=== PATIENT | female | born 1965 | race Caucasian/White ===

== ENCOUNTER 2018-04-03 13:36 | Outpatient (CLI) | payer BC ==
--- NOTE | 2018-04-07 13:29 | MMO ---
BILATERAL SCREENING MAMMOGRAM: Date: 04/03/18 COMPARISON: 03/06/17 and 11/21/15. HISTORY: Screening mammography. FINDINGS: This patient's mammogram was interpreted with the assistance of computer-aided detection. Scattered fibroglandular densities are present. Benign calcification noted on the right. No dominant mass or architectural distortion. No concerning microcalcification. IMPRESSION: BIRADS 2: Benign Finding(s) Annual screening mammography recommended. POS: [facility]
== END 2018-04-03 13:37 | disposition home or self-care (01) ==
LOC: SCSMAMMO 13:36
PROVIDERS: ATTEND Obstetrics & Gynecology
DX: Z12.31 Encounter for screening mammogram for malignant neoplasm of breast (principal)
CPT/HCPCS: 77067

== ENCOUNTER 2019-01-05 12:44 | Outpatient (CLI) | payer BC, OTHER ==
--- NOTE | 2019-01-05 18:13 | NM ---
NUCLEAR MEDICINE HEPATOBILIARY SCAN WITH EJECTION FRACTION: History: Right upper quadrant pain. FINDINGS: Patient was injected with 5.2 mCi Technetium 99M Mebrofenin intravenously. There is prompt uptake of the tracer by the liver with excretion into the biliary tree and gallbladder with emptying into the d uodenum. At the 60 minute time interval, the patient was given 8 oz of Ensure p.o. Gallbladder ejecti on fraction equals 90%, which is normal. IMPRESSION: Normal Nuclear Medicine hepatobiliary scan and ejection fraction of 90%. POS: [facility]
== END 2019-01-05 12:45 | disposition home or self-care (01) ==
LOC: NM 12:44
PROVIDERS: ATTEND Internal Medicine Gastroenterology
DX: R10.11 Right upper quadrant pain (principal); G89.29 Other chronic pain
CPT/HCPCS: 78227; A9537

== ENCOUNTER 2019-03-09 07:57 | Outpatient (CLI) | payer BC ==
[2019-03-09] MEDS ORDERED: Iopamidol 370 76% 100 ML VIAL ONE (09:00)
--- NOTE | 2019-03-09 11:05 | CT ---
CT ABDOMEN AND PELVIS WITH CONTRAST: Date: 03/09/19 HISTORY: R10.11 right upper quadrant pain. COMPARISON: Nuclear medicine study dated 01/05/19. FINDINGS: The lung bases are clear. No pericardial effusion. Diffuse hepatic steatosis. Spleen is unremarkable. There is what appears to be partial occlusion of the splenic artery, which is partially embedded in t he pancreatic parenchyma. Mild diastasis recti. Small fat-containing periumbilical hernia. No dilated loops of large or small bowel. The appendix is felt to be visualized and appears normal. There is a midline lower abdominal/pelvic fascial scar. No retroperitoneal or periaortic adenopathy. Mild dextroscoliosis. Mild facet arthropathy. IMPRESSION: 1. No acute inflammatory process in abdomen or pelvis. 2. Mild diffuse hepatic steatosis. 3. 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 POS: [facility]
== END 2019-03-09 07:58 | disposition home or self-care (01) ==
LOC: SCSCT 07:57
PROVIDERS: ATTEND Physician Assistant Medical
DX: R10.11 Right upper quadrant pain (principal); K76.0 Fatty (change of) liver, not elsewhere classified; I70.8 Atherosclerosis of other arteries
CPT/HCPCS: 74177; Q9967

== ENCOUNTER 2019-03-25 08:37 | Outpatient (CLI) | payer BC ==
[2019-03-25] MEDS ORDERED: Iopamidol 370 76% 100 ML VIAL ONE (09:00)
--- NOTE | 2019-03-25 17:35 | CT ---
CT ABDOMEN WITHOUT CONTRAST CT ANGIOGRAM OF CHEST CT ANGIOGRAM ABDOMEN CT ANGIOGRAM PELVIS 03/25/19 HISTORY: Splenic artery occlusion. COMPARISON: CT abdomen and pelvis 03/09/19. FINDINGS: On the noncontrast portion of the examination there is a large calcification within the pancreatic pa renchyma of the splenic artery. 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 This is much better visualized than the prior CT abdomen and pelvis examination. There is a dense calcification within the splenic artery which is embedded within the pancreatic parenchyma without pseudoaneurysm or significant narrowing. Severe mesenteric artery is patent. The lung parenchyma is clear. No pericardial effusion. No pneumothorax. No dilated loops of large or small bowel. No acute inflammatory process within the abdomen or pelvis. Gallbladder is normal. Kidneys are unremarkable. Spleen is normal. Mild degenerative changes of the lumbar spine. No compression deformity. A few end plate Schmorl's no cary thoracic spine. IMPRESSION: 1. Patent splenic artery much better evaluated on this exam than the prior CT abdomen and pelvis . 2. 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 POS: [facility]
== END 2019-03-25 08:38 | disposition home or self-care (01) ==
LOC: SCSCT 08:37
PROVIDERS: ATTEND Physician Assistant Medical
DX: R10.11 Right upper quadrant pain (principal); R93.3 Abnormal findings on diagnostic imaging of other parts of digestive tract; R14.0 Abdominal distension (gaseous); K21.9 Gastro-esophageal reflux disease without esophagitis; I77.4 Celiac artery compression syndrome
CPT/HCPCS: 71275; 74174; Q9967

== ENCOUNTER 2020-12-17 14:03 | Emergency (ER) | payer BC, OTHER ==
[~2020-12-17 14:03] MED LIST: Iopamidol-370 76% 500 ML 1 ML ONE
[2020-12-17 14:39] LABS: #Basophils 0.1 thou/uL (0.0-0.2); #Eosinphils 0.2 thou/uL (0.0-0.7); #Lymphocytes 2.9 thou/uL (1.20-3.40); #Monocytes 0.9 thou/uL (0.11-0.59); #Neutrophils 7.1 thou/uL (1.40-6.50); %Basophils 0.5 % (0.0-1.0); %Eosinophils 1.4 % (0.0-10.0); %Lymphocytes 26.3 % (21.0-51.0); %Monocytes 7.8 % (0.0-10.0); Mean Corpuscular HGB CONC 33.2 g/dL (32.0-36.0); Mean Corpuscular Hemoglobin 29.8 pg (27.0-31.0); Mean Corpuscular Volume 89.6 fL (78.0-98.0); Mean Platelet Volume 8.2 fL (7.4-10.4); Platelet Count 273 thou/uL (130-400); RBC Distribution Width 12.6 % (11.5-14.5); Red Blood Cell (RBC) Count 4.36 mill/uL (4.20-5.40)
[2020-12-17] MEDS ORDERED: Ondansetron PF 4 MG/2 ML Vial ONE (14:45)
[2020-12-17] MEDS ORDERED: Morphine 2 MG/ML VIAL ONE (14:46)
[2020-12-17] MEDS ORDERED: Morphine 4 MG/ML VIAL ONE ×2 (14:46→16:37)
[2020-12-17 14:47] LABS: Bilirubin Negative (Negative); Blood, Urine Negative (Negative); Clarity Clear (Clear); Glucose, Urine (Dipstick) Normal (Negative); Ketone, Urine Negative (Negative); Leukocyte Negative Leu/uL (Negative); Nitrite Negative (Negative); Protein, Urine (Dipstick) Negative (Neg-Trace); Urobilinogen Normal mg/dL (Less than 2); pH, Urine 7.5 (5.0-9.0)
[2020-12-17 14:59] LABS: ALT (SGPT) 19 U/L (8-55); AST (SGOT) 17 U/L (5-34); Albumin 4.2 g/dL (3.5-5.0); Alkaline Phosphatase 74 U/L (40-110); Anion Gap 15 mmol/L (10-20); BUN (Urea Nitrogen) 15 mg/dL (9.8-20.1); Bilirubin, Total 0.3 mg/dL (0.2-1.2); Calc. Creatinine Clearance 0 mL/min (70-130); Calcium 9.4 mg/dL (7.8-10.44); Carbon Dioxide 24 mmol/L (22-29); Chloride 105 mmol/L (98-107); Globulin 3.4 g/dL (2.4-3.5); Glucose 117 mg/dL (70-105); Lipase 4 U/L (8-78); Potassium 3.8 mmol/L (3.5-5.1); Protein, Total 7.6 g/dL (6.0-8.3); Sodium 140 mmol/L (136-145)
[2020-12-17] MEDS ORDERED: Cyclobenzaprine 10 MG TAB ONE (18:06)
[2020-12-17] MEDS ORDERED: HYDROcodone/Acetaminophen 5/325 mg Tablet ONE (18:06)
== END 2020-12-17 18:41 | disposition home or self-care (01) ==
LOC: ERS 14:03
DX: R10.13 Epigastric pain (principal)
CPT/HCPCS: 71045; 74174; 76705; 80053; 81003; 83605; 83690; 84484; 85025; 93005; 94760; 96374; 96375; 96376; J2270; J2405; Q9967

== ENCOUNTER 2023-08-14 15:38 | Outpatient (CLI) | payer BC | END 2023-08-14 15:39 | disposition home or self-care (01) | LOC: SCSRAD 15:38 | PROVIDERS: ATTEND Nurse Practitioner Family | DX: M25.561 Pain in right knee (principal); M17.11 Unilateral primary osteoarthritis, right knee ==

== ENCOUNTER 2024-02-26 18:39 | Emergency (ER) | payer BC ==
[2024-02-26 19:47] LABS: Bacteria/HPF 1+ HPF (None Seen); Bilirubin Negative (Negative); Blood, Urine Negative (Negative); CAUTI Indications for Culture Fever or rigors; Clarity Clear (Clear); Glucose, Urine (Dipstick) Normal (Negative); Ketone, Urine Negative (Negative); Leukocyte Negative Leu/uL (Negative); Nitrite Negative (Negative); Protein, Urine (Dipstick) Negative (Neg-Trace); RBC/HPF None Seen HPF (0-3); Specific Gravity, Urine 1.005 (1.002-1.036); Squamous Epithelial 0-3 HPF (0-3); Urobilinogen Normal mg/dL (Less than 2); WBC/HPF None Seen HPF (0-3)
[2024-02-26 19:48] LABS: Urine Culture Reflex No No
[2024-02-26 20:39] LABS: #Basophils 0.03 10x3/uL (0.0-0.2); %Basophils 0.4 % (0.0-1.0); %Eosinophils 1.8 % (0.0-10.0); %Lymphocytes 32.3 % (21.0-51.0); %Monocytes 7.3 % (0.0-10.0); %Neutrophils 57.7 % (42.0-75.0); Hemoglobin 13.3 g/dL (12.0-16.0); Mean Corpuscular HGB CONC 33.3 g/dL (32.0-36.0); Mean Corpuscular Hemoglobin 30.4 pg (27.0-31.0); Mean Corpuscular Volume 91.3 fL (78.0-98.0); Mean Platelet Volume 10.8 fL (7.4-10.4); Platelet Count 264 10x3/uL (130-400); Red Blood Cell (RBC) Count 4.38 mill/uL (4.20-5.40)
[2024-02-26 21:01] LABS: ALT (SGPT) 18 U/L (8-55); AST (SGOT) 19 U/L (5-34); Albumin 3.9 g/dL (3.5-5.0); Alkaline Phosphatase 70 U/L (40-110); Anion Gap 16 mmol/L (10-20); BUN (Urea Nitrogen) 19 mg/dL (9.8-20.1); Bilirubin, Total 0.4 mg/dL (0.2-1.2); Calc. Creatinine Clearance 0 mL/min (70-130); Calcium 9.7 mg/dL (7.8-10.44); Carbon Dioxide 25 mmol/L (22-29); Chloride 106 mmol/L (98-107); Estimated GFR 87; Globulin 3.2 g/dL (2.4-3.5); Glucose 96 mg/dL (70-105); Lipase 9 U/L (8-78); Potassium 4.1 mmol/L (3.5-5.1); Protein, Total 7.1 g/dL (6.0-8.3); Sodium 143 mmol/L (136-145)
[2024-02-26 21:06] LABS: Troponin I Less than 0.010 ng/mL (< 0.028)
[2024-02-26] MEDS ORDERED: Dicyclomine 20 MG/2 ML VIAL ONE (21:17)
[2024-02-26] MEDS ORDERED: Ketorolac Tromethamine 30 MG (1 mL) VIAL ONE (22:55)
[2024-02-26] MEDS ORDERED: Pantoprazole 40 MG VIAL ONE (22:57)
[2024-02-26] MEDS ORDERED: Lidocaine 2% Viscous 10 mL, Alum & Magn 30 mL SSW SCH (23:00)
== END 2024-02-26 23:18 | disposition home or self-care (01) ==
LOC: ERS 18:39
DX: K80.50 Calculus of bile duct without cholangitis or cholecystitis without obstruction (principal); Z55.6 Problems related to health literacy
CPT/HCPCS: 36415; 76705; 80053; 81001; 83690; 84484; 85025; 93005; 96372; 96374; 96375; C9113; J1885